=== PATIENT | female | born 1940 | race Caucasian/White ===

== ENCOUNTER 2018-06-16 11:22 | Inpatient (IN) | payer MEDICARE, OTHER ==
[2018-06-16] MEDS ORDERED: Adenosine 6 MG/2 ML VIAL ONE ×2 (11:41→11:52)
[2018-06-16] MEDS ORDERED: Diltiazem 125 MG/25 ML ONE (11:41)
[2018-06-16 11:58] LABS: #Eosinphils 0.1 thou/uL (0.0-0.7); #Monocytes 0.5 thou/uL (0.11-0.59); #Neutrophils 4.7 thou/uL (1.40-6.50); %Basophils 0.5 % (0.0-1.0); %Eosinophils 1.2 % (0.0-10.0); %Lymphocytes 16.1 % (21.0-51.0); %Monocytes 7.7 % (0.0-10.0); %Neutrophils 74.6 % (42.0-75.0); Hemoglobin 13.7 g/dL (12.0-16.0); Mean Corpuscular HGB CONC 33.5 g/dL (32.0-36.0); Mean Corpuscular Hemoglobin 30.5 pg (27.0-31.0); Mean Corpuscular Volume 90.9 fL (78.0-98.0); Platelet Count 196 thou/uL (130-400); RBC Distribution Width 12.4 % (11.5-14.5); White Blood Cell (WBC) Count 6.4 thou/uL (4.8-10.8)
[2018-06-16 12:27] LABS: ALT (SGPT) 18 U/L (8-55); AST (SGOT) 20 U/L (5-34); Albumin 4.1 g/dL (3.4-4.8); Alkaline Phosphatase 89 U/L (40-150); Anion Gap 14 mmol/L (10-20); BUN (Urea Nitrogen) 32 mg/dL (9.8-20.1); Bilirubin, Total 0.4 mg/dL (0.2-1.2); CK (CPK) 32 U/L (29-168); Calc. Creatinine Clearance 0 mL/min (70-130); Calcium 9.9 mg/dL (7.8-10.44); Carbon Dioxide 26 mmol/L (23-31); Chloride 104 mmol/L (98-107); Estimated GFR-MDRD 57; Globulin 2.5 g/dL (2.4-3.5); Glucose 185 mg/dL (83-110); Lipase 26 U/L (8-78); Potassium 4.6 mmol/L (3.5-5.1); Protein, Total 6.6 g/dL (6.0-8.3); Sodium 139 mmol/L (136-145)
[2018-06-16] MEDS ORDERED: Metoprolol Tartrate 5 MG/5 ML VIAL ONE ×2 (12:32→14:40)
[2018-06-16] MEDS ORDERED: Diltiazem 125 MG in Sodium Chloride 0.9% 100 ML IVPB SCH ×3 (12:45→16:34)
[2018-06-16 12:47] LABS: CKMB 2.3 ng/mL (0-6.6)
--- NOTE | 2018-06-16 13:11 | RAD ---
UPRIGHT PORTABLE CHEST ONE VIEW: History: 78-year-old female with history of chest pain that began last night. Comparison: 11-06-16 FINDINGS: Monitor leads overlie the chest. Post underlying sternotomy. Heart size is borderline. No confluent p neumonia, overt edema, or pleural effusion. IMPRESSION: Post underlying sternotomy. Borderline sized heart. No significant acute intrathoracic disease. POS: [facility]
[2018-06-16] MEDS ORDERED: Digoxin 0.5 MG/2 ML AMP ONE ×2 (14:12→14:40)
[2018-06-16] MEDS ORDERED: Enoxaparin Sodium 80 MG/0.8 ML SYRINGE ONE (14:23)
[2018-06-16 15:14] LABS: Magnesium 1.9 mg/dL (1.6-2.6); Phosphorus 3.4 mg/dL (2.3-4.7)
[2018-06-16] MEDS ORDERED: Calcium Carbonate 500 MG ChewTAB PO PRN (15:45)
[2018-06-16] MEDS ORDERED: Bisacodyl 10 MG SUPP PR PRN (15:45)
[2018-06-16] MEDS ORDERED: Ondansetron PF 4 MG/2 ML Vial IVP PRN (15:45)
[2018-06-16] MEDS ORDERED: HYDROcodone/Acetaminophen 5/325 mg Tablet PO PRN (15:45)
[2018-06-16] MEDS ORDERED: Ondansetron ODT 4 MG TAB PO PRN (15:45)
[2018-06-16] MEDS ORDERED: Acetaminophen 325 MG TAB PO PRN (15:51)
--- NOTE | 2018-06-16 16:31 | HP ---
PRIMARY CARE PHYSICIAN: Dr. Carmelo Arteaga. PRIMARY GROUP RESERVATIONS COORDINATOR: Dr. Castillo. CHIEF COMPLAINT: Palpitations and chest discomfort since 1:00 a.m. HISTORY OF PRESENT ILLNESS: The patient is an 78-year-old female with coronary artery disease, status post CABG and stent placement in the past, presented to the emergency room with chest discomfort that started at 1:00 a.m. The chest discomfort was mild in intensity associated with palpitations and shortness of breath. She also noticed bilateral lower extremity swelling over the last week. She is recovering from her bronchitis over the last week. No fever or chills reported. She denies any syncope. She denies recent immobilization, travel. She is currently on aspirin and Plavix. In the emergency room, her initial vital signs showed temperature of 97.8, respirations 20, pulse rate of 150 with a blood pressure of 112/86 with O2 saturation 97% on room air. EKG showed supraventricular tachycardia. She received several medications including 5 mg IV metoprolol, digoxin total of 0.75 mg, aspirin, adenosine total of 18 mg, and Cardizem push of 20 mg. She is currently on Cardizem drip at 10 mg/hour. PAST MEDICAL HISTORY: 1. Coronary artery disease, status post CABG and stent placement. 2. Hypothyroidism. 3. Hypertension. 4. Hyperlipidemia. PAST SURGICAL HISTORY: 1. Coronary artery bypass grafting in January [address] Betancourt. 2. Coronary stent placement in [place]. 3. . 4. Hysterectomy. ALLERGIES: THE PATIENT IS ALLERGIC TO PHENERGAN. CURRENT HOME MEDICATIONS: 1. Carvedilol 12.5 mg twice a day. 2. Plavix was 75 mg three times a week. 3. Simvastatin 20 mg daily. 4. Zyrtec 10 mg daily. 5. Aspirin 81 mg daily. 6. Olmesartan 40 mg daily. 7. Torsemide 20 mg daily. 8. Levothyroxine 25 mcg daily. She also takes [id number] medications includin. Vitamin C. 2. Multivitamin. 3. Calcium with vitamin D. 4. Coenzyme Q10. SOCIAL HISTORY: The patient currently lives at home with her family. She denies current use of tobacco, alcohol, or drug use. She makes her own decision with the help of her family. She is full code. FAMILY HISTORY: Positive for hypertension and coronary artery disease. REVIEW OF SYSTEMS: All other review of systems was reviewed and were found negative. PHYSICAL EXAMINATION: VITAL SIGNS: As discussed above. GENERAL: An 78-year-old female, in no distress. She has minimal chest discomfort, which has improved from before. HEENT: Head atraumatic, normocephalic. Sclerae anicteric. Moist mucous membranes. No oral lesion. NECK: Supple. No JVD. No carotid bruit. LUNGS: Clear to auscultation bilaterally. HEART: S1 and S2 present. Tachycardic. Heart rate in the 140s, appears to be irregularly irregular. No significant murmurs appreciated. ABDOMEN: Soft, nontender. Bowel sounds present. EXTREMITIES: 2+ edema in bilateral lower extremity. SKIN: Warm and dry. MUSCULOSKELETAL: No joint swelling or tenderness. NEUROLOGIC: Grossly nonfocal. Moves all 4 extremities. PSYCHIATRIC: Alert, awake, and oriented x3. LYMPH NODES: No palpable lymph nodes in the neck. LAB FINDINGS: CBC showed WBC of 6.4 with hemoglobin 13.7, hematocrit 40.9, platelet of 196. Chemistry showed sodium 139, potassium 4.6, chloride 104, bicarb 26, BUN 32, creatinine 0.95, glucose of 185, magnesium and phosphorus within normal range. Troponin of 0.041 with normal CK-MB. BNP 713. Chest x-ray by my review was negative for edema or infiltrate. EKG by my review showed possible atrial fibrillation with rapid ventricular response. IMPRESSION: 1. New onset atrial fibrillation with rapid ventricular response. 2. Coronary artery disease, status post coronary artery bypass grafting and stent placement, on aspirin and Plavix. 3. Hypertension. 4. Hyperlipidemia. 5. Hypothyroidism. 6. Chronic kidney disease stage 2. 7. Elevated troponin secondary to demand ischemia. PLAN: The patient will be monitored in the Intermediate Care Unit. We will consult Cardiology as well as Electrophysiology. She has been started on anticoagulation. She understands the risk of anticoagulation. We will continue aspirin as well as Plavix 3 times a week. The patient will be kept n.p.o. until cleared by Cardiology. Serial troponins will be done. We will recheck labs in a.m. We will hold diuretics for now due to blood pressure in the lower range. Plan of care was discussed with the patient and the family in detail. They stated understanding. Job ID: [id number]
[2018-06-16] MEDS ORDERED: Ondansetron PF 4 MG/2 ML Vial ONE (16:37)
[2018-06-16] MEDS ORDERED: Amiodarone HCl 450 MG in Dextrose 5% in Water 250 ML IVPB SCH (16:45)
[2018-06-16] MEDS ORDERED: Sodium Chloride 0.9% 500 ML IV SCH (18:15)
[2018-06-16 18:20] VITALS: BMI 32.3
[2018-06-16 19:54] LABS: Troponin I 0.161 ng/mL (< 0.028)
[2018-06-16] MEDS: Senokot S 8.6-50 MG TAB PO SCH (20:49)
[2018-06-16] MEDS: Famotidine 20 MG TAB PO SCH (20:49)
[2018-06-16] MEDS ORDERED: Carvedilol 6.25 MG TAB PO SCH (21:00)
--- NOTE | 2018-06-17 02:50 | CON ---
DATE OF CONSULTATION: 06/16/2018 TYPE OF CONSULTATION: Electrophysiology consultation. REFERRING PHYSICIAN: Dr. Pena. HISTORY OF PRESENT ILLNESS: I am seeing Mrs. Suggs at our [facility] as an electrophysiology sales enablement consultant in the ER. Her problems are; 1. New onset of atrial fibrillation with rapid rate with associated chest pains and hypertension, on diltiazem. 2. Prior history of coronary artery disease. a. History of coronary artery bypass grafting surgery about 8 years ago and stents prior to that. b. Reportedly normal RVF as per the patient's report based on recent echocardiogram at Dr. Castillo's office. 3. Risk factors including hypertension and hypercholesteremia. 4. Hypothyroidism, on replacement. ALLERGIES: PROMETHAZINE. MEDICATIONS: At home, include; 1. Carvedilol 12.5 twice a day. 2. Plavix. 3. Simvastatin. 4. Lipitor. 5. Benicar 40 mg daily. 6. Torsemide. 7. Levothyroxine. 8. Multivitamin. 9. Vitamin C. 10. Coenzyme Q10. The patient received IV diltiazem, adenosine, metoprolol, digoxin loading dose just today. SUBJECTIVE: Mrs. Suggs is here with symptoms of rapid palpitation. She had once a very rapid heart rate this morning. Her heart beating was normal yesterday and she had developed chest pains this morning with rapid heartbeats, she did not feel yesterday. She had no loss of consciousness, stroke-like symptoms, no neurological deficits. No fever, chills, or cough. No PND or orthopnea noted. The chest pains are precordial with some radiation to her arm. She had no dizziness, loss of consciousness though. She has no stroke-like symptoms or bleeding issues. The rest of 12-point system is otherwise unremarkable. PAST MEDICAL HISTORY: As above. SOCIAL HISTORY: Nonsmoker. Denies EtOH or drug use. Family at bedside. FAMILY HISTORY: Noncontributory. OBJECTIVE DATA: VITAL SIGNS: Blood pressure at the time of my exam is 90/60, alternative to 80/60, heart rate is 166, and respirations 14. The patient is afebrile. GENERAL: Alert and oriented elderly woman, in no apparent distress. NECK: Supple. Jugular veins not distended. CHEST: Coarse without crackles. HEART: Sounds are irregularly irregular and tachycardic. S1 is variable. No murmur or gallop. ABDOMEN: Benign. Bowel sounds positive. EXTREMITIES: Lower extremities without edema, clubbing, or cyanosis. DIAGNOSTIC STUDIES: Her EKG is reviewed, reveals coarse atrial fibrillation, episodic atypical atrial flutter also seen at a rate of 144 beats per minute. LABORATORY DATA: White cell count 6.4, hemoglobin 7.7, platelet count is 196. Sodium 139, potassium 4.6, BUN is 32 with a creatinine of 0.95. AST and ALT are 20 and 18. Troponin I 0.041 and 0.07. BNP is 713. The chest x-ray results suggest of borderline sized heart, no acute intrathoracic disease. ASSESSMENT/PLAN: Mrs. Suggs is a very pleasant 78-year-old woman with prior history of coronary artery disease and hypertension, who is presenting with her new onset of atrial fibrillation with rapid rate. The onset is fairly clearly demarcated by this morning, rate extremely rapid and she has not noted any of this yesterday. She is fairly sicker. Her episodes started only this morning. She is symptomatic with chest pains, borderline troponins are seen, history of coronary disease. I think she is at risk for developing further myocardial damage with continued rapid rates, which we are difficult to control in view of the developing hypertension. As I discussed with Dr. Pena, the ER physician and Dr. Gonzales, as well as the patient, it is reasonable to consider acute cardioversion in this setting. She will receive Lovenox and after that, it would be reasonable to stop diltiazem and switch it over to amiodarone for suppressing this rhythm. Later, she can be converted to Multaq if clinically feasible 06:00 are a consideration depending on her additional issues in the future. Also, long-term ablation is a consideration, although due to her age, this will require further discussion regarding pros and cons. Thank you again for allowing me to participate in the care of this patient. We will see as an outpatient in a followup. Job ID: [id number]
[2018-06-17] MEDS ORDERED: Enoxaparin Sodium 80 MG/0.8 ML SYRINGE SC SCH (03:00)
--- NOTE | 2018-06-17 03:58 | CON ---
DATE OF CONSULTATION: 06/16/2018 HISTORY OF PRESENT ILLNESS: The patient is an 78-year-old woman with a history of coronary artery disease, status post coronary artery bypass surgery, who presented with palpitations and chest discomfort. The patient has a history of coronary artery disease,and has previously undergone PTCA and stent placement. She states she also has previously undergone coronary artery bypass graft surgery. The patient recently had been doing well until she developed dyspnea with nonproductive cough. She reports having mild fever. She noticed at 1:00 a.m. this morning the acute onset of palpitation. The patient became short of breath and developed chest discomfort. She took nitroglycerin and presented to the emergency room. The patient denies having any present chest discomfort. PAST MEDICAL HISTORY: 1. Coronary artery disease. 2. Hypertension. 3. Thyroid disorder. PAST SURGICAL HISTORY: Coronary artery bypass surgery, hysterectomy, and C- section. SOCIAL HISTORY: Nonsmoker. ALLERGIES: PHENERGAN. MEDICATIONS: See nursing list. REVIEW OF SYSTEMS: A 10-point systems is otherwise unremarkable. No history of easy bruising or bleeding. PHYSICAL EXAMINATION: GENERAL: This is an obese woman, in mild distress. VITAL SIGNS: Blood pressure 110/70 on IV Cardizem. NECK: Showed no jugular venous distention. LUNGS: Clear to auscultation. HEART: Irregular rate and rhythm. Normal S1 and S2. ABDOMEN: Distended. EXTREMITIES: Show trace edema. VASCULAR: Radial pulse is 2+. LABORATORY RESULTS: Sodium 139, potassium 4.6, chloride 104, bicarb 26, BUN 32, creatinine is 0.95, and glucose 185. Troponin 0.041. White blood cell count 6.4, hemoglobin 13.7, hematocrit 40.9, and platelets 196. Telemetry monitoring revealed atrial fibrillation with a rapid ventricular response. IMPRESSION: 1. New onset atrial fibrillation. 2. History of coronary artery bypass surgery. 3. Thyroid disorder. 4. Hypertension. This woman presents with new onset atrial fibrillation. Her rate was very rapid. The patient received IV Digoxin and IV Lopressor. The patient at this time is free of chest discomfort. She will be continued on IV Cardizem. She will be started on subcutaneous Lovenox. She may need to undergo electrocardioversion during this hospitalization. We will follow this patient with you. Job ID: [id number] [facility]
[2018-06-17 04:31] LABS: #Eosinphils 0.2 thou/uL (0.0-0.7); #Lymphocytes 1.2 thou/uL (1.20-3.40); #Monocytes 0.5 thou/uL (0.11-0.59); #Neutrophils 2.8 thou/uL (1.40-6.50); %Basophils 0.1 % (0.0-1.0); %Eosinophils 5.2 % (0.0-10.0); %Lymphocytes 24.6 % (21.0-51.0); %Monocytes 11.3 % (0.0-10.0); %Neutrophils 58.8 % (42.0-75.0); Hemoglobin 10.5 g/dL (12.0-16.0); Mean Corpuscular HGB CONC 33.9 g/dL (32.0-36.0); Mean Corpuscular Hemoglobin 31.2 pg (27.0-31.0); Mean Platelet Volume 6.8 fL (7.4-10.4); Platelet Count 142 thou/uL (130-400); RBC Distribution Width 12.6 % (11.5-14.5); Red Blood Cell (RBC) Count 3.35 mill/uL (4.20-5.40); White Blood Cell (WBC) Count 4.8 thou/uL (4.8-10.8)
[2018-06-17 04:40] LABS: Anion Gap 8 mmol/L (10-20); BUN (Urea Nitrogen) 21 mg/dL (9.8-20.1); Calc. Creatinine Clearance 72 mL/min (70-130); Calcium 8.5 mg/dL (7.8-10.44); Carbon Dioxide 25 mmol/L (23-31); Chloride 113 mmol/L (98-107); Estimated GFR-MDRD 78; Glucose 94 mg/dL (83-110); Magnesium 1.9 mg/dL (1.6-2.6); Potassium 4.1 mmol/L (3.5-5.1); Sodium 142 mmol/L (136-145)
[2018-06-17] MEDS: Enoxaparin Sodium 80 MG/0.8 ML SYRINGE SC SCH ×2 (06:11→17:30)
[2018-06-17 07:59] LABS: Troponin I 0.243 ng/mL (< 0.028)
[2018-06-17] MEDS ORDERED: Carvedilol 3.125 MG TAB PO SCH (08:00)
[2018-06-17] MEDS: Loratadine 10 MG TAB PO SCH (08:53)
[2018-06-17] MEDS: Famotidine 20 MG TAB PO SCH ×2 (08:53→20:15)
[2018-06-17] MEDS: Senokot S 8.6-50 MG TAB PO SCH ×2 (08:53→20:23)
[2018-06-17] MEDS: Aspirin 81 mg Enteric Coated Tablet PO SCH (08:53)
[2018-06-17] MEDS: Torsemide 20 MG TAB PO SCH (08:54)
[2018-06-17] MEDS ORDERED: Cetirizine HCl 10 MG TAB PO SCH (09:00)
--- NOTE | 2018-06-17 13:58 | EKG ---
Test Reason : Blood Pressure : / mmHG Vent. Rate : 148 BPM Atrial Rate : 147 BPM P-R Int : 000 ms QRS Dur : 084 ms QT Int : 296 ms P-R-T Axes : 000 069 006 degrees QTc Int : 464 ms Supraventricular tachycardia Nonspecific ST abnormality Abnormal ECG #1 Confirmed by TATYANA HAHN D.O. ([id number]), acquisitions editor UZMA CORTES ([id number]) on 06/17/2018 1:58:28 PM Referred By: Confirmed By:TATYANA HAHN D.O.
--- NOTE | 2018-06-17 13:58 | EKG ---
Test Reason : Blood Pressure : / mmHG Vent. Rate : 165 BPM Atrial Rate : 166 BPM P-R Int : 000 ms QRS Dur : 076 ms QT Int : 292 ms P-R-T Axes : 000 071 266 degrees QTc Int : 483 ms Atrial fibrillation with rapid ventricular response Abnormal ECG Confirmed by TATYANA HAHN D.O. ([id number]), communications editor UZMA CORTES ([id number]) on 06/17/2018 1:58:47 PM Referred By: Confirmed By:TATYANA HAHN D.O.
--- NOTE | 2018-06-17 13:58 | EKG ---
Test Reason : Blood Pressure : / mmHG Vent. Rate : 144 BPM Atrial Rate : 144 BPM P-R Int : 112 ms QRS Dur : 072 ms QT Int : 278 ms P-R-T Axes : 097 066 -38 degrees QTc Int : 430 ms Sinus tachycardia Abnormal ECG #2 Confirmed by TATYANA HAHN D.O. ([id number]), fashion editor UZMA CORTES ([id number]) on 06/17/2018 1:58:37 PM Referred By: Confirmed By:TATYANA HAHN D.O.
--- NOTE | 2018-06-17 13:59 | EKG ---
Test Reason : Blood Pressure : / mmHG Vent. Rate : 050 BPM Atrial Rate : 050 BPM P-R Int : 140 ms QRS Dur : 082 ms QT Int : 402 ms P-R-T Axes : 053 044 032 degrees QTc Int : 366 ms Sinus bradycardia with Premature supraventricular complexes Nonspecific ST and T wave abnormality Abnormal ECG Confirmed by TATYANA HAHN D.O. ([id number]), science editor UZMA CORTES ([id number]) on 06/17/2018 1:59:08 PM Referred By: Confirmed By:TATYANA HAHN D.O.
--- NOTE | 2018-06-17 13:59 | EKG ---
Test Reason : Blood Pressure : / mmHG Vent. Rate : 156 BPM Atrial Rate : 125 BPM P-R Int : 000 ms QRS Dur : 080 ms QT Int : 274 ms P-R-T Axes : 000 057 -23 degrees QTc Int : 441 ms Undetermined rhythm Nonspecific ST and T wave abnormality Abnormal ECG Confirmed by TATYANA HAHN D.O. ([id number]), index editor UZMA CORTES ([id number]) on 06/17/2018 1:59:05 PM Referred By: Confirmed By:TATYANA HAHN D.O.
--- NOTE | 2018-06-17 14:21 | PDOC.PN ---
- Subjective Encounter Start Date: 06/17/18 Encounter Start Time: 07:30 Patient seen and examined for Afib with RVR. No CP/SOB. No new complaints. No overnight events - Objective Resuscitation Status - Order Detail: 06/16/18 15:45 Resuscitation Status Routine Resuscitation Status: FULL: Full Resuscitation MAR Reviewed: Yes Vital Signs & Weight: Vital Signs (12 hours) Temp Pulse Resp BP Pulse Ox 06/17/18 12:38 97.3 F L 71 19 114/59 L 98 06/17/18 08:02 96 06/17/18 07:52 95 06/17/18 07:38 98.1 F 64 18 112/52 L 95 06/17/18 07:26 98.2 F 52 L 17 112/52 L 96 06/17/18 04:00 97.6 F 57 L 18 90/55 L 93 L Weight Weight 160 lb 4.417 oz I&O: 06/16/18 06/17/18 06/18/18 06:59 06:59 06:59 Intake Total 790 Output Total 690 Balance 100 Result Diagrams: 06/17/18 04:09 06/17/18 04:09 Additional Labs: Laboratory Tests 06/17/18 06/17/18 04:09 04:09 Magnesium 1.9 Troponin I 0.243 H EKG Reviewed by me: Yes (Tele SB) Phys Exam - Physical Examination Constitutional: NAD Respiratory: no wheezing, no rhonchi few rales at bases, No accessory muscle use Cardiovascular: RRR, no rub no heaves/pulsations Gastrointestinal: soft, non-tender, positive bowel sounds Musculoskeletal: no edema, pulses present Neurological: non-focal, moves all 4 limbs Psychiatric: A&O x 3 Dx/Plan - Plan DVT proph w/lovenox IMPRESSION: 1. New onset Afib with RVR s/p CV 2. Coronary artery disease, CABG and stent. 3. Hypertension. 4. Hyperlipidemia. 5. Hypothyroidism. 6. Chronic kidney disease stage 2. 7. Elevated troponin secondary to demand ischemia. PLAN: On Lovenox 1 mg/kg Resume ASA Resume low dose Coreg Restart Torsemide AM labs Review of Systems - Review of Systems Respiratory: negative: Cough, Dry, Shortness of Breath, Hemoptysis, SOB with Excertion, Pleuritic Pain, Sputum, Wheezing Cardiovascular: negative: chest pain, palpitations, orthopnea, paroxysmal nocturnal dyspnea, edema, light headedness, other Gastrointestinal: negative: Nausea, Vomiting, Abdominal Pain, Diarrhea, Constipation, Melena, Hematochezia, Other - Medications/Allergies Allergies/Adverse Reactions: Allergies Allergy/AdvReac Type Severity Reaction Status Date / Time promethazine AdvReac Intermediate Nausea Verified 06/16/18 12:32 Medications: Current Medications Acetaminophen (Tylenol) 650 mg PO Q4H PRN PRN Reason: Headache/Fever or Mild Pain Aspirin (Ecotrin) 81 mg PO DAILY [facility] Last Admin: 06/17/18 08:53 Dose: 81 mg Atorvastatin Calcium (Lipitor) 10 mg PO HS [facility] Bisacodyl (Dulcolax) 10 mg [place] DAILYPRN PRN PRN Reason: Constipation Calcium Carbonate (Tums) 1,000 mg PO Q4H PRN PRN Reason: Heartburn or Indigestion Dronedarone (Multaq) 400 mg PO BID-[facility] Enoxaparin Sodium (Lovenox) 70 mg SC 0600,1800 [facility] Last Admin: 06/17/18 06:11 Dose: 70 mg Famotidine (Pepcid) 20 mg PO BID [facility] Last Admin: 06/17/18 08:53 Dose: 20 mg Ipratropium [place] (Atrovent 0.03%) 1 ml EA NARE BID [facility] Levothyroxine Sodium (Synthroid) 25 mcg PO 0600 [facility] Loratadine (Claritin) 10 mg PO DAILY [facility] Last Admin: 06/17/18 08:53 Dose: 10 mg Ondansetron HCl (Zofran Odt) 4 mg PO Q6H PRN PRN Reason: Nausea/Vomiting Ondansetron HCl (Zofran) 4 mg IVP Q6H PRN PRN Reason: Nausea/Vomiting Senna/Docusate Sodium (Senokot S) 1 tab PO BID [facility] Last Admin: 06/17/18 08:53 Dose: Not Given Sodium Chloride (Flush - Normal Saline) 10 ml IVF PRN PRN PRN Reason: Saline Flush Torsemide (Demadex) 20 mg PO DAILY [facility] Last Admin: 06/17/18 08:54 Dose: 20 mg
[2018-06-17] MEDS: Dronedarone HCl 400 MG TAB PO SCH (17:29)
[2018-06-17] MEDS: Atorvastatin Calcium 10 MG TAB PO SCH ×2 (20:15→20:24)
--- NOTE | 2018-06-17 20:44 | PRG ---
DATE OF SERVICE: 06/17/2018 SUBJECTIVE: Beata Suggs has no new complaints today. OBJECTIVE: VITAL SIGNS: She is afebrile. Heart rate is 67, respiratory rate is 18, oximetry is 95 on room air, and blood pressure is 112/53. LUNGS: Clear when I evaluated her. HEART: Regular rhythm. ABDOMEN: Soft. LABORATORY DATA: White count 4.8, hemoglobin 10.5, and platelets 142. Sodium 142, potassium 4.1, chloride 113, bicarbonate 25, BUN 21, creatinine 0.7, and glucose 94. IMPRESSION: 1. Rapid atrial fibrillation. 2. Coronary artery disease with a history of coronary artery bypass grafting and stenting. 3. History of hypertension. 4. History of a lipid disorder. She appears to be clinically stable. We will follow the other physicians caring for. Her only complaint was the cough today. I suspect this is rhinitis cough, as this gets worse when she lays down. I thought maybe the atrial fibrillation with pulmonary edema could have triggered the cough, which she says it was going on before these symptoms appeared. So, I will put her on some nasal ipratropium to see if this helps dry up her upper airway. Job ID: [id number]
[2018-06-17] MEDS ORDERED: Simvastatin 20 MG TAB PO SCH (21:00)
[2018-06-17] MEDS: Ipratropium Bromide 0.03% Nasal Inhaler 30 ml Bottle EA NARE SCH (22:23)
[2018-06-18] MEDS: Enoxaparin Sodium 80 MG/0.8 ML SYRINGE SC SCH ×2 (05:31→17:33)
[2018-06-18] MEDS: Levothyroxine Sodium 25 MCG TAB PO SCH (05:31)
[2018-06-18 06:06] LABS: #Eosinphils 0.4 thou/uL (0.0-0.7); #Lymphocytes 1.3 thou/uL (1.20-3.40); #Monocytes 0.5 thou/uL (0.11-0.59); #Neutrophils 2.7 thou/uL (1.40-6.50); %Eosinophils 7.8 % (0.0-10.0); %Lymphocytes 26.9 % (21.0-51.0); %Monocytes 9.7 % (0.0-10.0); %Neutrophils 55.7 % (42.0-75.0); Hemoglobin 11.4 g/dL (12.0-16.0); Mean Corpuscular HGB CONC 33.5 g/dL (32.0-36.0); Mean Corpuscular Hemoglobin 30.6 pg (27.0-31.0); Mean Corpuscular Volume 91.4 fL (78.0-98.0); Platelet Count 155 thou/uL (130-400); RBC Distribution Width 12.4 % (11.5-14.5); Red Blood Cell (RBC) Count 3.73 mill/uL (4.20-5.40); White Blood Cell (WBC) Count 4.9 thou/uL (4.8-10.8)
[2018-06-18 06:17] LABS: Anion Gap 8 mmol/L (10-20); BUN (Urea Nitrogen) 18 mg/dL (9.8-20.1); Calc. Creatinine Clearance 69 mL/min (70-130); Calcium 8.8 mg/dL (7.8-10.44); Carbon Dioxide 31 mmol/L (23-31); Chloride 107 mmol/L (98-107); Estimated GFR-MDRD 72; Glucose 83 mg/dL (83-110); Magnesium 1.8 mg/dL (1.6-2.6); Potassium 3.9 mmol/L (3.5-5.1); Sodium 142 mmol/L (136-145)
[2018-06-18] MEDS: Potassium Chloride 10 MEQ TAB PO SCH ×2 (09:30→17:34)
[2018-06-18] MEDS: Dronedarone HCl 400 MG TAB PO SCH ×2 (09:30→17:34)
[2018-06-18] MEDS: Aspirin 81 mg Enteric Coated Tablet PO SCH (09:30)
[2018-06-18] MEDS: Loratadine 10 MG TAB PO SCH (09:31)
[2018-06-18] MEDS: Senokot S 8.6-50 MG TAB PO SCH ×2 (09:31→20:22)
[2018-06-18] MEDS: Torsemide 20 MG TAB PO SCH (09:31)
[2018-06-18] MEDS: Ipratropium Bromide 0.03% Nasal Inhaler 30 ml Bottle EA NARE SCH ×2 (09:31→20:16)
[2018-06-18] MEDS: Famotidine 20 MG TAB PO SCH ×2 (09:31→20:16)
--- NOTE | 2018-06-18 16:10 | PRG ---
DATE OF SERVICE: 06/18/2018 SUBJECTIVE: Beata Suggs states she feels 100% better. OBJECTIVE: VITAL SIGNS: Heart rate 56 to 62. She is afebrile. Respiratory rate is 18, oximetry is 97 on room air, blood pressure 119/57. LUNGS: Clear. HEART: Regular rhythm. ABDOMEN: Soft. EXTREMITIES: Without edema. She was talking, tells me about her driving over here from out of town. Her daughter is unable to drive him and he has dementia. I advised her to call her daughter, and make sure he does not try to drive over here with his dementia. He can hopefully get somebody to come over and see her tomorrow that will bring him, but I have explained to her and given her several examples why he should not be driving. She was seen in consultation by Dr. Zamudio yesterday. She appears stable. She will continue to be monitored because of her atrial arrhythmias. There were no respiratory issues at this time. Job ID: [id number]
[2018-06-18] MEDS: Atorvastatin Calcium 10 MG TAB PO SCH (20:16)
--- NOTE | 2018-06-18 22:48 | PDOC.PN ---
- Subjective Encounter Start Date: 06/18/18 Encounter Start Time: 08:15 Patient seen and examined for new onset Afib. No new complaints. No overnight events - Objective Resuscitation Status - Order Detail: 06/16/18 15:45 Resuscitation Status Routine Resuscitation Status: FULL: Full Resuscitation MAR Reviewed: Yes Vital Signs & Weight: Vital Signs (12 hours) Temp Pulse Resp BP BP Pulse Ox 06/18/18 19:33 97 06/18/18 19:31 97.1 F L 59 L 16 120/69 97 06/18/18 15:38 97.3 F L 70 18 139/63 06/18/18 11:45 97.9 F 62 18 119/57 L 97 Weight Weight 164 lb 11.2 oz I&O: 06/17/18 06/18/18 06/19/18 06:59 06:59 06:59 Intake Total 790 1770 600 Output Total 690 3950 1900 Balance 100 -2180 -1300 Result Diagrams: 06/19/18 05:10 06/19/18 05:10 EKG Reviewed by me: Yes (Tele SR) Phys Exam - Physical Examination Constitutional: NAD Respiratory: no wheezing, no rhonchi Cardiovascular: RRR, no rub Gastrointestinal: soft, non-tender, positive bowel sounds Musculoskeletal: no edema Dx/Plan - Plan DVT proph w/lovenox, DVT proph w/SCDs 1. New onset Afib with RVR s/p CV 2. Coronary artery disease, CABG and stent. 3. Hypertension. 4. Hyperlipidemia. 5. Hypothyroidism. 6. Chronic kidney disease stage 2. 7. Elevated troponin secondary to demand ischemia. PLAN: Cont Lovenox with Multaq/Coreg Cont ASA Plavix on hold Cont Torsemide AM labs Review of Systems - Review of Systems Cardiovascular: negative: chest pain, palpitations, orthopnea, paroxysmal nocturnal dyspnea, edema, light headedness, other Gastrointestinal: negative: Nausea, Vomiting, Abdominal Pain, Diarrhea, Constipation, Melena, Hematochezia, Other - Medications/Allergies Allergies/Adverse Reactions: Allergies Allergy/AdvReac Type Severity Reaction Status Date / Time promethazine AdvReac Intermediate Nausea Verified 06/16/18 12:32 Medications: Current Medications Acetaminophen (Tylenol) 650 mg PO Q4H PRN PRN Reason: Headache/Fever or Mild Pain Aspirin (Ecotrin) 81 mg PO DAILY [facility] Last Admin: 06/18/18 09:30 Dose: 81 mg Atorvastatin Calcium (Lipitor) 10 mg PO HS [facility] Last Admin: 06/18/18 20:16 Dose: 10 mg Bisacodyl (Dulcolax) 10 mg [place] DAILYPRN PRN PRN Reason: Constipation Calcium Carbonate (Tums) 1,000 mg PO Q4H PRN PRN Reason: Heartburn or Indigestion Dronedarone (Multaq) 400 mg PO BID-[facility] Last Admin: 06/18/18 17:34 Dose: 400 mg Enoxaparin Sodium (Lovenox) 70 mg SC 0600,1800 [facility] Last Admin: 06/18/18 17:33 Dose: 70 mg Famotidine (Pepcid) 20 mg PO BID [facility] Last Admin: 06/18/18 20:16 Dose: 20 mg Ipratropium [place] (Atrovent 0.03%) 1 ml EA NARE BID [facility] Last Admin: 06/18/18 20:16 Dose: 2 puff Levothyroxine Sodium (Synthroid) 25 mcg PO 0600 [facility] Last Admin: 06/18/18 05:31 Dose: 25 mcg Loratadine (Claritin) 10 mg PO DAILY [facility] Last Admin: 06/18/18 09:31 Dose: 10 mg Ondansetron HCl (Zofran Odt) 4 mg PO Q6H PRN PRN Reason: Nausea/Vomiting Ondansetron HCl (Zofran) 4 mg IVP Q6H PRN PRN Reason: Nausea/Vomiting Potassium Chloride (Klor-Con 10) 10 meq PO BID-[facility] Last Admin: 06/18/18 17:34 Dose: 10 meq Senna/Docusate Sodium (Senokot S) 1 tab PO BID [facility] Last Admin: 06/18/18 20:22 Dose: Not Given Sodium Chloride (Flush - Normal Saline) 10 ml IVF PRN PRN PRN Reason: Saline Flush Last Admin: 06/18/18 20:16 Dose: 10 ml Torsemide (Demadex) 20 mg PO DAILY [facility] Last Admin: 06/18/18 09:31 Dose: 20 mg
[2018-06-19] MEDS: Levothyroxine Sodium 25 MCG TAB PO SCH (05:10)
[2018-06-19] MEDS: Enoxaparin Sodium 80 MG/0.8 ML SYRINGE SC SCH (05:10)
[2018-06-19 05:45] LABS: #Eosinphils 0.4 thou/uL (0.0-0.7); #Lymphocytes 1.3 thou/uL (1.20-3.40); #Monocytes 0.5 thou/uL (0.11-0.59); #Neutrophils 3.2 thou/uL (1.40-6.50); %Basophils 0.7 % (0.0-1.0); %Eosinophils 7.7 % (0.0-10.0); %Lymphocytes 23.2 % (21.0-51.0); %Monocytes 9.4 % (0.0-10.0); Hemoglobin 11.6 g/dL (12.0-16.0); Mean Corpuscular HGB CONC 33.9 g/dL (32.0-36.0); Mean Corpuscular Hemoglobin 30.7 pg (27.0-31.0); Mean Corpuscular Volume 90.6 fL (78.0-98.0); Platelet Count 152 thou/uL (130-400); RBC Distribution Width 12.4 % (11.5-14.5); Red Blood Cell (RBC) Count 3.78 mill/uL (4.20-5.40); White Blood Cell (WBC) Count 5.4 thou/uL (4.8-10.8)
[2018-06-19 06:06] LABS: Anion Gap 10 mmol/L (10-20); BUN (Urea Nitrogen) 15 mg/dL (9.8-20.1); Calc. Creatinine Clearance 69 mL/min (70-130); Calcium 8.9 mg/dL (7.8-10.44); Carbon Dioxide 30 mmol/L (23-31); Chloride 103 mmol/L (98-107); Estimated GFR-MDRD 76; Glucose 83 mg/dL (83-110); Magnesium 1.9 mg/dL (1.6-2.6); Potassium 3.5 mmol/L (3.5-5.1); Sodium 139 mmol/L (136-145)
[2018-06-19] MEDS: Potassium Chloride 10 MEQ TAB PO SCH (08:19)
[2018-06-19] MEDS: Aspirin 81 mg Enteric Coated Tablet PO SCH (08:19)
[2018-06-19] MEDS: Famotidine 20 MG TAB PO SCH (08:19)
[2018-06-19] MEDS: Dronedarone HCl 400 MG TAB PO SCH (08:19)
[2018-06-19] MEDS: Loratadine 10 MG TAB PO SCH (08:19)
[2018-06-19] MEDS: Senokot S 8.6-50 MG TAB PO SCH (08:20)
[2018-06-19] MEDS: Torsemide 20 MG TAB PO SCH (08:20)
[2018-06-19 11:20] VITALS: BP 137/71; TEMP 97.4
--- NOTE | 2018-06-19 12:06 | EKG ---
Test Reason : Blood Pressure : / mmHG Vent. Rate : 065 BPM Atrial Rate : 065 BPM P-R Int : 146 ms QRS Dur : 082 ms QT Int : 410 ms P-R-T Axes : 021 067 051 degrees QTc Int : 426 ms Sinus rhythm with Premature atrial complexes Otherwise normal ECG When compared with ECG of 16-JUN-2018 16:21, Nonspecific T wave abnormality no longer evident in Anterior leads QT has lengthened Confirmed by MORIS TOMAS ([id number]) on 06/19/2018 12:05:48 PM Referred By: DARIEL Confirmed By:MORIS TOMAS
--- NOTE | 2018-06-19 13:28 | PRG ---
DATE OF SERVICE: 06/19/2018 SUBJECTIVE: Beata Suggs has no complaints. She denies shortness of breath. 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 OBJECTIVE: VITAL SIGNS: She is afebrile. Heart rate 75, respiratory rate 16, oximetry is 97 on room air, and blood pressure 137/71. LUNGS: Clear. HEART: Regular rhythm. ABDOMEN: Soft. IMPRESSION: 1. Atrial fibrillation. 2. Coronary artery disease. 3. Coronary artery bypass grafting in the past. 4. History of coronary stenting in the past. 5. Hypertension. 6. Lipid disorder. PLAN: Await Cardiology input. We will sign off. If she transfers out of the Intermediate Care Unit, discharged home. She is hoping she is going home. Job ID: [id number]
--- NOTE | 2018-06-19 14:01 | PRG ---
DATE OF SERVICE: SUBJECTIVE: Ms. Suggs is doing much better today and wishes to go home. The patient came to the hospital initially with atrial fibrillation with a rapid ventricular response resulting in a non-ST elevation infarction due to demand ischemia. She is feeling much better now, she is in sinus rhythm. OBJECTIVE: VITAL SIGNS: The patient's blood pressure is 137/71, pulse is 70 and sinus. LUNGS: Clear. CARDIAC: Normal S1, normal S2. ABDOMEN: Soft, nontender. EXTREMITIES: There is no edema. ASSESSMENT: 1. Status post non-ST elevation infarction due to demand ischemia. 2. Underlying coronary disease. 3. Atrial fibrillation, paroxysmal to very rapid rate. PLAN: 1. She will go home on Multaq 400 mg twice a day. She is going to be given samples. She thinks she would probably be able to buy it on her insurance after the first of the year. 2. Eliquis 5 mg twice a day. 3. Stop Plavix. 4. Reduce aspirin to 81 mg a day. 5. Resume Benicar 40 mg a day. 6. Continue torsemide. 7. Discontinue potassium. She has not taken this as an outpatient. 8. Continue Pepcid. 9. She is to be released home. Job ID: [id number]
[2018-06-19] MEDS ORDERED: Carvedilol 6.25 MG TAB PO SCH (17:00)
[2018-06-19] MEDS ORDERED: Apixaban 5 MG TAB PO SCH (21:00)
--- NOTE | 2018-06-19 21:25 | DIS ---
DATE OF ADMISSION: 06/16/2018 DATE OF DISCHARGE: 06/19/2018 DISCHARGE DISPOSITION: Home. FOLLOWUP: 1. Follow up with primary care physician, Dr. Carmelo Arteaga, after 1 week. 2. Follow up with Cardiology, Dr. Castillo, in 2 to 3 weeks. ALLERGIES: THE PATIENT IS ALLERGIC TO PHENERGAN. DISCHARGE MEDICATIONS: 1. Multaq 400 mg b.i.d. 2. Carvedilol 6.25 mg b.i.d. 3. Eliquis 5 mg b.i.d. 4. Demadex 20 mg daily. 5. Simvastatin 20 mg daily. 6. Levothyroxine 25 mcg daily. 7. Benicar 40 mg daily. 8. Cetirizine 10 mg daily. 9. Aspirin 81 mg daily. BRIEF HOSPITAL COURSE: The patient is an 78-year-old female with coronary artery disease, status post CABG and stent placement, presented to the hospital on June 16, 2018, with chest discomfort along with palpitations that started around 1:00 a.m. Please refer to the history and physical for further details. The patient was found to have new onset atrial fibrillation with rapid ventricular response. Due to hemodynamically instability and ongoing chest pain, she underwent cardioversion. She was seen by Cardiology, Dr. Castillo, as well as Electrophysiology, Dr. Zamudio. She was started on anticoagulation. She understands the risks associated with anticoagulation. Plavix has been discontinued due to high risk of bleeding while taking anticoagulation. She remained in sinus rhythm. She has been cleared by Cardiology for discharge. FINAL DIAGNOSES: 1. New onset atrial fibrillation with rapid ventricular response. 2. Elevated troponin secondary to demand ischemia. 3. Coronary artery disease, status post coronary artery bypass graft and stent placement. 4. Hypertension. 5. Hyperlipidemia. 6. Hypothyroidism. 7. Chronic kidney disease stage 2. 8. Obesity with a BMI of 32. 9. Anemia. PLAN: Plan of care was discussed with the patient in detail. She stated understanding. Job ID: [id number]
== END 2018-06-19 15:00 | disposition home or self-care (01) | DRG 309 ==
LOC: ERS 11:22 → IMCU/EMU 14:32
PROVIDERS: ADMIT Internal Medicine; ATTEND Internal Medicine
PROC: 5A2204Z Restoration of Cardiac Rhythm, Single (ICD-10-PCS; principal; 2018-06-16)
DX: I48.91 Unspecified atrial fibrillation (principal); I24.8 Other forms of acute ischemic heart disease; I25.10 Atherosclerotic heart disease of native coronary artery without angina pectoris; E03.9 Hypothyroidism, unspecified; E78.5 Hyperlipidemia, unspecified; I12.9 Hypertensive chronic kidney disease with stage 1 through stage 4 chronic kidney disease, or unspecified chronic kidney disease; N18.2 Chronic kidney disease, stage 2 (mild); E66.9 Obesity, unspecified; Z68.32 Body mass index [BMI] 32.0-32.9, adult; D64.9 Anemia, unspecified; Z79.82 Long term (current) use of aspirin; Z79.02 Long term (current) use of antithrombotics/antiplatelets; Z95.1 Presence of aortocoronary bypass graft; Z95.5 Presence of coronary angioplasty implant and graft; Z82.49 Family history of ischemic heart disease and other diseases of the circulatory system
CPT/HCPCS: 36415; 71045; 80048; 80053; 82550; 82553; 83690; 83735; 83880; 84100; 84443; 84484; 85025; 93005; 93010; 94760; 96361; 96365; 96366; 96372; 96375; 96376; 99156; 99292; J0153; J0282; J1160; J1650; J2405; J3475; J7050; J7070